=== PATIENT | male | born 1970 | race Caucasian/White ===

== ENCOUNTER 2020-05-14 17:46 | Outpatient (REF) | payer OTHER, SELFPAY ==
[2020-05-14 18:39] LABS: COVID-19 Test Negative (Negative)
== END 2020-05-14 17:47 | disposition home or self-care (01) ==
LOC: HO.LAB 17:46
PROVIDERS: Visit Provider Internal Medicine
DX: Z20.828 Contact with and (suspected) exposure to other viral communicable diseases (principal)
CPT/HCPCS: 87635; C9803

== ENCOUNTER 2020-06-25 14:57 | Outpatient (REF) | payer OTHER, SELFPAY ==
[2020-06-25 18:19] LABS: COVID-19 Test Negative (Negative); IDNOW Serial# 55D5AD1C
== END 2020-06-25 14:58 | disposition home or self-care (01) ==
LOC: HO.EMPCOV 14:57
PROVIDERS: Visit Provider Internal Medicine
DX: Z20.828 Contact with and (suspected) exposure to other viral communicable diseases (principal)
CPT/HCPCS: 87635; C9803